=== PATIENT | male | born 1995 | race Caucasian/White ===

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

== ENCOUNTER → 2017-01-02 15:59 | Emergency (ER) | payer OTHER ==
[2017-01-02 16:07] VITALS: BP 138/76
[2017-01-02 17:05] LABS: Hematocrit 41 % (42-52); Hemoglobin 13.4 g/dl (14.0-18.0); Mean Corpuscular HGB Conc 33 g/dl (31-36); Mean Corpuscular Hemoglobin 29 pg (27-31); Mean Corpuscular Volume 87 fL (80-94); Mean Platelet Volume 7 um3 (7.4-10.4); Red Cell Distribution Width 15 % (10.5-15); White Blood Count 6.9 10^3/ul (3.5-10.8)
[2017-01-02 17:15] LABS: ALT 15 U/L (7-52); AST 25 U/L (13-39); Albumin 4.6 g/dL (3.2-5.2); Alkaline Phosphatase 95 U/L (34-104); Anion Gap 6 mmol/L (2-11); BUN/Creatinine Ratio 18.9 (8-20); Blood Urea Nitrogen 18 mg/dL (6-24); CO2 Carbon Dioxide 28 mmol/L (22-32); Calcium 9.6 mg/dL (8.6-10.3); Chloride 104 mmol/L (101-111); EGFR African American 131.3 (>60); EGFR Non-African American 102.1 (>60); Globulin 2.7 g/dL (2-4); Glucose 84 mg/dL (70-100); Potassium 3.7 mmol/L (3.5-5.0); Sodium 138 mmol/L (133-145); Total Protein 7.3 g/dL (6.4-8.9)
--- NOTE | 2017-01-02 17:39 | ED ---
Psychiatric Complaint - HPI Summary HPI Summary: Pt here as he reports a friend told school RA about recent conversation they had re: him feeling "bummed out" now. He denies stating he was suicidal or having plans to act on anything harmful but pt admits d/t impulsive behaviors, friend may have been aggressive in recruiting help to avoid something from happening to him. Pt reports police came to his room for a welfare check which is why he's here tonight. 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 Follows w/ gender specialist in [place] - History Of Current Complaint Chief Complaint: EDMentalHealth Time Seen by Provider: 01/02/17 16:18 Hx Obtained From: Patient - Allergies/Home Medications Allergies/Adverse Reactions: Allergies Allergy/AdvReac Type Severity Reaction Status Date / Time No Known Allergies Allergy Verified 01/02/17 16:26 Home Medications: Home Medications Albuterol HFA INHALER* [Ventolin HFA Inhaler*] 2 puff INH Q4H PRN 01/02/17 [ History Confirmed 01/02/17] Amitriptyline TAB* [Elavil TAB*] 10 mg PO BEDTIME 01/02/17 [History Confirmed ] Clindamycin Phosphate-Benzoyl [Clindamycin/Benzoyl Perox 1.2-5 %] 1 applic TOPICAL DAILY 01/02/17 [History Confirmed 01/02/17] Minocycline (NF) 100 mg PO BID 01/02/17 [History Confirmed 01/02/17] SUMAtriptan TAB* [Imitrex TAB*] 50 mg PO ONCE 01/02/17 [History Confirmed ] Sertraline HCl [Zoloft] 100 mg PO DAILY 01/02/17 [History Confirmed 01/02/17] Testosterone Cypionate 0.5 mg IM WEEKLY 01/02/17 [History Confirmed 01/02/17] PMH/Surg Hx/FS Hx/Imm Hx Previously Healthy: Yes Endocrine/Hematology History: Reports: Hx Anemia - diet controlled, Other Endocrine/Hematological Disorders - transitioning from female to male - injects testosterone monthly Denies: Hx Thyroid Disease Psychiatric History: Reports: Hx Depression - zoloft Denies: Hx Eating Disorder, Hx of Violent Episodes Against Others Infectious Disease History: No Infectious Disease History: Denies: Traveled Outside the [place] in Last 30 Days - Family History Known Family History: Positive: None - Social History Occupation: Student Lives: Dormitory/Roommates Alcohol Use: None Hx Substance Use: No Substance Use Type: Reports: None Hx Tobacco Use: No Smoking Status (MU): Never Smoked Tobacco Review of Systems Constitutional: Negative Negative: Fever, Chills, Fatigue Eyes: Negative Negative: Blurred Vision ENT: Negative Negative: Sore Throat Cardiovascular: Negative Negative: Palpitations, Chest Pain Respiratory: Negative Negative: Shortness Of Breath Gastrointestinal: Negative Negative: Abdominal Pain, Vomiting, Diarrhea, Nausea Positive: no symptoms reported Musculoskeletal: Negative Skin: Negative Neurological: Negative Psychological: Other - see HPI - no SI/HI All Other Systems Reviewed And Are Negative: Yes Physical Exam Triage Information Reviewed: Yes Vital Signs On Initial Exam: Initial Vitals Temp Pulse Resp BP Pulse Ox 98 F 95 17 138/76 100 01/02/17 16:04 01/02/17 16:04 01/02/17 16:04 01/02/17 16:04 01/02/17 16:04 Vital Signs Reviewed: Yes Appearance: Positive: Well-Appearing, No Pain Distress, Well-Nourished Skin: Positive: Warm, Dry - diffuse facial acne Head/Face: Positive: Normal Head/Face Inspection Eyes: Positive: Normal, EOMI, CANDY, Conjunctiva Clear ENT: Positive: Hearing grossly normal, Pharynx normal - mucosa moist Neck: Positive: Supple Respiratory/Lung Sounds: Positive: Breath Sounds Present Cardiovascular: Positive: Normal, RRR, S1, S2. Negative: Murmur, Rub Abdomen Description: Positive: Nontender, Soft Musculoskeletal: Positive: Normal, Strength/ROM Intact Neurological: Positive: Normal, Sensory/Motor Intact, Alert, Oriented to Person Place, Time, CN Intact II-III Psychiatric: Positive: Normal - pleasant, cooperative, good eye contact, calm Diagnostics - Vital Signs Vital Signs Temp Pulse Resp BP Pulse Ox 01/02/17 16:04 98 F 95 17 138/76 100 - Laboratory Lab Results: Lab Results 01/02/17 01/02/17 Range/Units 16:45 16:45 WBC 6.9 (3.5-10.8) 10^3/ul RBC 4.70 (4.0-5.4) 10^6/ul Hgb 13.4 L (14.0-18.0) g/dl Hct 41 L (42-52) % MCV 87 (80-94) fL MCH 29 (27-31) pg MCHC 33 (31-36) g/dl RDW 15 (10.5-15) % Plt Count 310 (150-450) 10^3/ul MPV 7 L (7.4-10.4) um3 Neut % (Auto) 62.5 (38-83) % Lymph % (Auto) 30.6 (25-47) % [place] % (Auto) 6.2 (1-9) % Eos % (Auto) 0.3 (0-6) % Baso % (Auto) 0.4 (0-2) % Absolute Neuts (auto) 4.3 (1.5-7.7) 10^3/ul Absolute Lymphs (auto) 2.1 (1.0-4.8) 10^3/ul Absolute Monos (auto) 0.4 (0-0.8) 10^3/ul Absolute Eos (auto) 0 (0-0.6) 10^3/ul Absolute Basos (auto) 0 (0-0.2) 10^3/ul Absolute Nucleated RBC 0 10^3/ul Nucleated RBC % 0 Sodium 138 (133-145) mmol/L Potassium 3.7 (3.5-5.0) mmol/L Chloride 104 (101-111) mmol/L Carbon Dioxide 28 (22-32) mmol/L Anion Gap 6 (2-11) mmol/L BUN 18 (6-24) mg/dL Creatinine 0.95 (0.67-1.17) mg/dL Est GFR ( Amer) 131.3 (>60) Est GFR (Non-Af Amer) 102.1 (>60) BUN/Creatinine Ratio 18.9 (8-20) Glucose 84 (70-100) mg/dL Calcium 9.6 (8.6-10.3) mg/dL Total Bilirubin 0.80 (0.2-1.0) mg/dL AST 25 (13-39) U/L ALT 15 (7-52) U/L Alkaline Phosphatase 95 (34-104) U/L Total Protein 7.3 (6.4-8.9) g/dL Albumin 4.6 (3.2-5.2) g/dL Globulin 2.7 (2-4) g/dL Albumin/Globulin Ratio 1.7 (1-3) TSH Pending Salicylates Pending Acetaminophen Pending Serum Alcohol Pending Result Diagrams: 01/02/17 16:45 01/02/17 16:45 Lab Statement: Any lab studies that have been ordered have been reviewed, and results considered in the medical decision making process. Course/Dx - Course Course Of Treatment: Pt presents as 941 - brought in by police on a welfare check requested by pt's roommate - he denies current or previous SI/HI but admits he struggles with depression at times and has a h/o of being "impulsive" which is probably why friend was worried. Appears calm and collected tonight - denies SI/HI. valentín feels pt is safe for d/c. NOTE: Pt's TSH appears high which can indicate hypothyroidism. Added on FT4 and will fwd to pt's PCP. Vitals are WNL and pt is w/o sx other than possibly mood being a presenting factor. - Differential Dx/Clinical Impression Provider Diagnosis: Depression, Abnormal thyroid blood test Discharge - Discharge Plan Condition: Stable Disposition: HOME Patient Education Materials: Depression (ED) Referrals: [facility] [Outside] - As Soon As Possible (Contact [facility] to see if they can pair you with a therapist sooner.) Non Staff,Doctor [Primary Care Provider] -
[2017-01-02 17:47] LABS: Acetaminophen < 15 mcg/mL; Alcohol < 10 mg/dL (<10); Salicylate < 2.50 mg/dL (<30)
[2017-01-03 03:13] LABS: Free T4 0.62 ng/dL (0.61-1.12)
== END | disposition home or self-care (01) ==
LOC: ED 15:59
DX: F32.9 Major depressive disorder, single episode, unspecified (principal); R94.6 Abnormal results of thyroid function studies
CPT/HCPCS: 36415; 80053; 80320; 80329; 84439; 84443; 85025; 99283; G0480

== ENCOUNTER 2017-01-21 03:42 | Emergency (ER) | payer OTHER ==
[2017-01-21 07:23] LABS: Hematocrit 38 % (42-52); Hemoglobin 12.9 g/dl (14.0-18.0); Mean Corpuscular HGB Conc 34 g/dl (31-36); Mean Corpuscular Hemoglobin 30 pg (27-31); Mean Corpuscular Volume 87 fL (80-94); Mean Platelet Volume 7 um3 (7.4-10.4); Red Blood Count 4.37 10^6/ul (4.0-5.4); Red Cell Distribution Width 15 % (10.5-15); White Blood Count 10.1 10^3/ul (3.5-10.8)
[2017-01-21 07:41] LABS: ALT 12 U/L (7-52); AST 24 U/L (13-39); Albumin 4.4 g/dL (3.2-5.2); Alkaline Phosphatase 87 U/L (34-104); Anion Gap 9 mmol/L (2-11); Blood Urea Nitrogen 18 mg/dL (6-24); C Reactive Protein < 1.00 mg/L (< 5.00); CO2 Carbon Dioxide 24 mmol/L (22-32); Calcium 9.1 mg/dL (8.6-10.3); Chloride 106 mmol/L (101-111); EGFR African American 172.5 (>60); EGFR Non-African American 134.2 (>60); Globulin 2.8 g/dL (2-4); Glucose 90 mg/dL (70-100); Lipase 25 U/L (11.0-82.0); Potassium 3.8 mmol/L (3.5-5.0); Sodium 139 mmol/L (133-145); Total Protein 7.2 g/dL (6.4-8.9)
[2017-01-21 08:16] LABS: Alcohol 56 mg/dL (<10)
[2017-01-21 08:31] LABS: Amylase 28 U/L (29-103); Creatine Kinase 288 U/L (10-223)
[2017-01-21] MEDS ORDERED: Ondansetron ODT TAB* 4 MG PO ONE (08:58)
[2017-01-21 09:46] VITALS: BP 122/67
--- NOTE | 2017-01-21 10:48 | ED ---
Favian Elizalde SooYoung, scribed for Elroy Petersen MD on 01/21/17 at 0739 . Abdominal Pain/Male - HPI Summary HPI Summary: A 21 y/o M CHILO presents to ED with c/o abd pain onset approx 0300 this date. Associated sx: vomiting, unresponsiveness, irregular breathing. Per friend, pt had 3-4 mixed drinks at a [employer] party, pt then called his friend at approx 0300 because he "couldn't breathe." Friend went to pt's room, found him having difficulty breathing, vomiting, eyes rolling into the back his head. The RA was called and contacted EMS. Pt takes Zoloft. Pt states he's had more to drink at times and not had a reaction like this. He states he is feeling better at bedside. - History of Current Complaint Chief Complaint: EDAbdPain Stated Complaint: ABD PAIN Hx Obtained From: Patient, Family/Corrugator - friend Onset/Duration: Lasting Hours, Resolved Timing: Constant Severity Initially: Moderate Severity Currently: None Pain Intensity: 0 Pain Scale Used: 0-10 Numeric Associated Signs And Symptoms: Positive: Vomiting, Other - mildly unresponsive; dyspnea - Allergies/Home Medications Allergies/Adverse Reactions: Allergies Allergy/AdvReac Type Severity Reaction Status Date / Time No Known Allergies Allergy Verified 01/21/17 04:12 PMH/Surg Hx/FS Hx/Imm Hx Previously Healthy: No Endocrine/Hematology History: Reports: Hx Anemia - diet controlled, Other Endocrine/Hematological Disorders - transitioning from female to male - injects testosterone monthly Denies: Hx Thyroid Disease Psychiatric History: Reports: Hx Depression - zoloft Denies: Hx Eating Disorder, Hx of Violent Episodes Against Others Infectious Disease History: No Infectious Disease History: Denies: Traveled Outside the [place] in Last 30 Days - Family History Known Family History: Positive: Other - pos: schizophrenia, depression - Social History Occupation: Student Lives: Dormitory/Roommates Alcohol Use: None Hx Substance Use: No Substance Use Type: Reports: None Hx Tobacco Use: No Smoking Status (MU): Never Smoked Tobacco Review of Systems Negative: Fever Positive: Other - pos: dyspnea Positive: Abdominal Pain, Vomiting Neurological: Other - mildly unresponsive All Other Systems Reviewed And Are Negative: Yes Physical Exam Triage Information Reviewed: Yes Vital Signs On Initial Exam: Initial Vitals Temp Pulse Resp BP Pulse Ox 98.6 F 86 20 115/100 100 01/21/17 04:07 01/21/17 04:07 01/21/17 04:07 01/21/17 04:07 01/21/17 04:07 Vital Signs Reviewed: Yes Appearance: Positive: Well-Appearing, No Pain Distress Skin: Positive: Warm, Skin Color Reflects Adequate Perfusion, Dry Head/Face: Positive: Normal Head/Face Inspection Eyes: Positive: Normal ENT: Positive: Normal ENT inspection Neck: Positive: Supple, Nontender Respiratory/Lung Sounds: Positive: Clear to Auscultation, Breath Sounds Present Cardiovascular: Positive: RRR Abdomen Description: Positive: Nontender, Soft Bowel Sounds: Positive: Present Musculoskeletal: Positive: Normal Neurological: Positive: Normal Psychiatric: Positive: Affect/Mood Appropriate - Brandy Coma Scale Coma Scale Total: 15 Diagnostics - Vital Signs Vital Signs Temp Pulse Resp BP Pulse Ox 01/21/17 06:22 97.8 F 103 16 111/56 100 01/21/17 05:39 88 17 105/51 100 01/21/17 04:07 98.6 F 86 20 115/100 100 - Laboratory Lab Results: Lab Results 01/21/17 01/21/17 01/21/17 Range/Units 07:10 07:10 07:10 WBC 10.1 (3.5-10.8) 10^3/ul RBC 4.37 (4.0-5.4) 10^6/ul Hgb 12.9 L (14.0-18.0) g/dl Hct 38 L (42-52) % MCV 87 (80-94) fL MCH 30 (27-31) pg MCHC 34 (31-36) g/dl RDW 15 (10.5-15) % Plt Count 282 (150-450) 10^3/ul MPV 7 L (7.4-10.4) um3 Neut % (Auto) 86.1 H (38-83) % Lymph % (Auto) 10.4 L (25-47) % [place] % (Auto) 3.4 (1-9) % Eos % (Auto) 0 (0-6) % Baso % (Auto) 0.1 (0-2) % Absolute Neuts (auto) 8.7 H (1.5-7.7) 10^3/ul Absolute Lymphs (auto) 1.0 (1.0-4.8) 10^3/ul Absolute Monos (auto) 0.3 (0-0.8) 10^3/ul Absolute Eos (auto) 0 (0-0.6) 10^3/ul Absolute Basos (auto) 0 (0-0.2) 10^3/ul Absolute Nucleated RBC 0 10^3/ul Nucleated RBC % 0 Sodium 139 (133-145) mmol/L Potassium 3.8 (3.5-5.0) mmol/L Chloride 106 (101-111) mmol/L Carbon Dioxide 24 (22-32) mmol/L Anion Gap 9 (2-11) mmol/L BUN 18 (6-24) mg/dL Creatinine 0.75 (0.67-1.17) mg/dL Est GFR ( Amer) 172.5 (>60) Est GFR (Non-Af Amer) 134.2 (>60) BUN/Creatinine Ratio 24.0 H (8-20) Glucose 90 (70-100) mg/dL Lactic Acid 1.9 (0.5-2.0) mmol/L Calcium 9.1 (8.6-10.3) mg/dL Total Bilirubin 0.30 (0.2-1.0) mg/dL AST 24 (13-39) U/L ALT 12 (7-52) U/L Alkaline Phosphatase 87 (34-104) U/L Total Creatine Kinase 288 H (10-223) U/L C-Reactive Protein < 1.00 (< 5.00) mg/L Total Protein 7.2 (6.4-8.9) g/dL Albumin 4.4 (3.2-5.2) g/dL Globulin 2.8 (2-4) g/dL Albumin/Globulin Ratio 1.6 (1-3) Amylase 28 L (29-103) U/L Lipase 25 (11.0-82.0) U/L Serum Alcohol 56 H (<10) mg/dL Result Diagrams: 01/21/17 07:10 01/21/17 07:10 Lab Statement: Any lab studies that have been ordered have been reviewed, and results considered in the medical decision making process. Re-Evaluation - Re-Evaluation 1 Re-Evaluation Time: 08:59 Change: Improved Comment: Pt is feeling better, wants to go home. Discussed lab results and dispo with pt and friend. Pt and friend voiced understanding. Abdominal Pain Fem Course/Dx - Course Course Of Treatment: When I saw Travis at 0715 when my shift started, he was feeling much better and did not have much memory of what had happened. His abdomen was soft and nontender and his labs were WNL. - Diagnoses Provider Diagnoses: Abdominal pain, Alcohol intoxication Discharge - Discharge Plan Condition: Stable Disposition: HOME Patient Education Materials: Abdominal Pain (ED) [facility] - Additional Instructions: Follow up at [facility] in the next 2-3 days. Please return to the ED if you experience new or worsening symptoms. The documentation as recorded by the Favian landeros SooYoung accurately reflects the service I personally performed and the decisions made by me, Elroy Petersen MD.
== END 2017-01-21 09:46 | disposition home or self-care (01) ==
LOC: ED 03:42
DX: R10.9 Unspecified abdominal pain (principal); F10.129 Alcohol abuse with intoxication, unspecified; Y90.2 Blood alcohol level of 40-59 mg/100 ml; D64.9 Anemia, unspecified; F32.9 Major depressive disorder, single episode, unspecified; F64.0 Transsexualism
CPT/HCPCS: 36415; 80053; 80320; 82150; 82550; 83605; 83690; 85025; 86140; 99283; A9270-GY; G0480